=== PATIENT | female | born 1955 | race African-American/Black ===

== ENCOUNTER 2018-08-28 00:27 | Inpatient (IN) | payer MEDICARE, MEDICAID ==
[~2018-08-28] VITALS: Ht 165.1 cm; Wt 120.2 kg
[~2018-08-28 00:27] MED LIST: AMLO10TA4 PO; DIPH25CA83 PO; FURO-151 PO; GABA600T PO; HYDR-519 PO; HYDR-523 PO; OMEP20CA4 PO; insulin
[2018-08-28] MEDS ORDERED: SODIUM CHLORIDE 0.9% 1,000 ML IV ONE (00:53)
[2018-08-28 01:16] LABS: CHLORIDE 105 mEq/L (98-107)
[2018-08-28 01:23] LABS: BASOPHILS % 0.4 % (0.0-2.0); EOSINOPHILS % 0.1 % (0.0-5.0); HEMATOCRIT. 33.5 % (36.0-48.0); LYMPHOCYTES % 10.3 % (20.0-50.0); MEAN CORPUSCULAR HEMOGLOBIN 28.2 pg (28.0-32.0); MEAN PLATELET VOLUME 7.8 fl (7.4-10.4); MONOCYTES % 4.8 % (2.0-8.0); NEUTROPHILS % 84.4 % (40.0-76.0); PLATELET 325 x1000/uL (130-400); RED CELL DISTRIBUTION WIDTH 16.1 % (11.6-14.6)
[2018-08-28] MEDS ORDERED: DEXT 5%/0.45% NACL KCL 10MEQ/L 1,000 ML IV ONE (02:45)
[2018-08-28] MEDS ORDERED: DEXT 5%/0.45% NACL 1000ML 1,000 ML IV SCH (03:13)
[2018-08-28] MEDS ORDERED: CLONIDINE 0.1MG TABLET PO PRN (03:15)
[2018-08-28] MEDS ORDERED: ACETAMINOPHEN 325MG TABLET PO PRN (03:15)
[2018-08-28] MEDS ORDERED: DEXTROSE 50% WATER 50ML SYRINGE IV PRN (03:15)
[2018-08-28] MEDS ORDERED: ONDANSETRON HCL 4MG/2ML INJ IV PRN (03:15)
[2018-08-28] MEDS ORDERED: MAGNESIUM/ALUMINUM HYDROXIDE/SIMETHICONE 30ML UDC PO PRN (03:15)
[2018-08-28] MEDS ORDERED: DIPHENHYDRAMINE 50MG/ML VIAL IV PRN (03:15)
[2018-08-28 08:50] VITALS: BP 121/46
[2018-08-28 09:00] VITALS: BP 121/46
[2018-08-28] MEDS: BLOOD SUGAR DIAGNOSTIC STRIP TEST SCH ×2 (09:00→12:05)
[2018-08-28] MEDS: INSULIN LISPRO 100 UNITS/ML SUBCUT SCH ×2 (10:41→12:50)
[2018-08-28 12:00] VITALS: BP 142/51
[2018-08-28] MEDS ORDERED: CIPR-263 MT (13:57)
[2018-08-28] MEDS ORDERED: METF-816 MT (13:57)
[2018-08-28] MEDS ORDERED: LORA0.5T2 MT (13:57)
[2018-08-28] MEDS ORDERED: GLIP5TAB12 MT (13:57)
[2018-08-28] MEDS ORDERED: LOSA25TA12 MT (13:57)
[2018-08-28 15:18] VITALS: BP 121/46
== END 2018-08-28 15:36 | disposition home or self-care (01) | DRG 637 ==
LOC: ER 00:27 → 6EST 02:41 → ENRESERV 07:57
PROVIDERS: ADMIT Internal Medicine; ATTEND Internal Medicine
DX: E11.649 Type 2 diabetes mellitus with hypoglycemia without coma (principal); G93.41 Metabolic encephalopathy; Z68.41 Body mass index [BMI] 40.0-44.9, adult; L97.909 Non-pressure chronic ulcer of unspecified part of unspecified lower leg with unspecified severity; I10 Essential (primary) hypertension; E66.9 Obesity, unspecified; E11.622 Type 2 diabetes mellitus with other skin ulcer; G47.30 Sleep apnea, unspecified; J44.9 Chronic obstructive pulmonary disease, unspecified; W18.30XA Fall on same level, unspecified, initial encounter; Y93.89 Activity, other specified; Y92.098 Other place in other non-institutional residence as the place of occurrence of the external cause; Y99.8 Other external cause status; Z86.73 Personal history of transient ischemic attack (TIA), and cerebral infarction without residual deficits; Z79.899 Other long term (current) drug therapy
CPT/HCPCS: 36415; 82962; 93005; 96360; 96361; 99285; J1815; J7030

== ENCOUNTER 2019-02-25 16:51 | Inpatient (IN) | payer MEDICARE, MEDICAID ==
[~2019-02-25] VITALS: Ht 165.1 cm; Wt 102.5 kg
[~2019-02-25 16:51] MED LIST changes: +CIPR-263 MT; +GLIP5TAB12 MT; +LORA0.5T2 MT; +LOSA25TA26 MT; +METF-816 MT
[2019-02-25 19:42] LABS: CHLORIDE 105 mEq/L (98-107)
[2019-02-25 19:45] LABS: BASOPHILS % 0.4 % (0.0-2.0); EOSINOPHILS % 0.6 % (0.0-5.0); HEMATOCRIT. 31.4 % (36.0-48.0); HEMOGLOBIN. 10.2 g/dL (12.0-16.0); LYMPHOCYTES % 31.2 % (20.0-50.0); MEAN CORPUSCULAR HEMOGLOBIN 27.6 pg (28.0-32.0); MEAN PLATELET VOLUME 7.8 fl (7.4-10.4); MONOCYTES % 9.3 % (2.0-8.0); NEUTROPHILS % 58.5 % (40.0-76.0); PLATELET 356 x1000/uL (130-400); RED CELL DISTRIBUTION WIDTH 16.7 % (11.6-14.6)
[2019-02-25] MEDS ORDERED: ENOXAPARIN 80MG/0.8ML SYR SUBCUT ONE (20:00)
[2019-02-25 20:28] LABS: PROTHROMBIN TIME 10.1 sec (9.6-11.0)
[2019-02-25 21:45] VITALS: BP 142/68
[2019-02-25] MEDS ORDERED: ACETAMINOPHEN 325MG TABLET PO PRN (22:15)
[2019-02-25] MEDS ORDERED: MORPHINE SULFATE 2 MG/ML CPJ (NOT FOR IM USE) IV PRN (22:15)
[2019-02-25] MEDS ORDERED: IPRATROPIUM/ALBUTEROL 0.5-3(2.5)MG/3ML NEB HHN PRN (22:15)
[2019-02-25] MEDS ORDERED: DEXTROSE 50% WATER 50ML SYRINGE IV PRN (22:15)
[2019-02-25] MEDS ORDERED: ONDANSETRON HCL 4MG/2ML INJ IV PRN (22:15)
[2019-02-25] MEDS ORDERED: LORAZEPAM 2MG/ML CPJ IV PRN (22:15)
[2019-02-25] MEDS ORDERED: HYDROCODONE/ACETAMINOPHEN 10/325MG TABLET PO PRN (22:15)
[2019-02-25] MEDS ORDERED: CLONIDINE 0.1MG TABLET PO PRN (22:15)
[2019-02-25] MEDS ORDERED: MAGNESIUM/ALUMINUM HYDROXIDE/SIMETHICONE 30ML UDC PO PRN (22:15)
[2019-02-25] MEDS ORDERED: DOCUSATE SODIUM 100MG CAPSULE PO PRN (22:15)
[2019-02-25] MEDS ORDERED: NA PHOS,M-B/NA PHOS,DI-BA ENEMA 118ML PR PRN (22:15)
[2019-02-25] MEDS ORDERED: GUAIFENESIN 200MG/10ML SUGAR FREE UDC PO PRN (22:15)
[2019-02-25] MEDS ORDERED: HYDRALAZINE 20MG/ML VIAL IV PRN (22:15)
[2019-02-25] MEDS: DIPHENHYDRAMINE 50MG/ML VIAL IV PRN (22:31)
[2019-02-26] VITALS: BP 146/46
[2019-02-26 04:00] VITALS: BP 136/44
[2019-02-26] MEDS: SODIUM CHLORIDE 0.9% INJ 3ML FLUSH IVF SCH ×3 (05:23→20:30)
[2019-02-26] MEDS: BLOOD SUGAR DIAGNOSTIC STRIP TEST SCH ×4 (06:47→20:24)
[2019-02-26] MEDS: INSULIN LISPRO 100 UNITS/ML SUBCUT SCH ×4 (06:47→20:23)
[2019-02-26 07:03] LABS: BASOPHILS % 0.5 % (0.0-2.0); HEMATOCRIT. 29.7 % (36.0-48.0); HEMOGLOBIN. 9.8 g/dL (12.0-16.0); MEAN CORPUSCULAR VOLUME 84.9 fL (81.0-99.0); MEAN PLATELET VOLUME 7.8 fl (7.4-10.4); MONOCYTES % 9.2 % (2.0-8.0); NEUTROPHILS % 60.3 % (40.0-76.0); PLATELET 324 x1000/uL (130-400); RED CELL DISTRIBUTION WIDTH 16.8 % (11.6-14.6)
[2019-02-26 07:45] LABS: CHLORIDE 106 mEq/L (98-107)
[2019-02-26 07:53] LABS: LDL CHOLESTEROL 92 mg/dL (5-100)
[2019-02-26 07:55] LABS: CREATINE KINASE 84 IU/L (26-192); HDL CHOLESTEROL 38 mg/dL (40-59)
[2019-02-26 07:58] LABS: CREATINE KINASE MB FRACTION 1.1 ng/mL (0.5-3.6)
[2019-02-26 08:00] VITALS: BP 126/38
[2019-02-26] MEDS ORDERED: ENOXAPARIN 100MG/ML SYR SUBCUT SCH ×2 (09:00→21:00)
[2019-02-26 12:00] VITALS: BP 124/41
[2019-02-26] MEDS: AMLODIPINE 10MG TABLET PO SCH (12:50)
[2019-02-26] MEDS: LOSARTAN POTASSIUM 25 MG TABLET PO SCH (12:51)
[2019-02-26] MEDS: DIPHENHYDRAMINE 50MG/ML VIAL IV PRN ×2 (13:03→20:24)
[2019-02-26 16:00] VITALS: BP 146/50
[2019-02-26] MEDS ORDERED: APIXABAN 5 MG TABLET PO SCH (17:00)
[2019-02-26] MEDS: METFORMIN HCL 500MG TABLET PO SCH (17:48)
[2019-02-26 20:00] VITALS: BP 145/52
[2019-02-26 20:37] LABS: CREATINE KINASE 70 IU/L (26-192)
[2019-02-26 20:38] LABS: CREATINE KINASE MB FRACTION < 1.0 ng/mL (0.5-3.6)
[2019-02-27] VITALS: BP 160/57
[2019-02-27 04:00] VITALS: BP 160/60
[2019-02-27] MEDS: INSULIN LISPRO 100 UNITS/ML SUBCUT SCH (06:24)
[2019-02-27] MEDS: SODIUM CHLORIDE 0.9% INJ 3ML FLUSH IVF SCH (06:24)
[2019-02-27] MEDS: BLOOD SUGAR DIAGNOSTIC STRIP TEST SCH (06:24)
[2019-02-27] MEDS ORDERED: GLIPIZIDE 5MG TABLET PO SCH (07:10)
[2019-02-27 08:00] VITALS: BP 133/37
[2019-02-27 08:22] LABS: BASOPHILS % 0.6 % (0.0-2.0); EOSINOPHILS % 0.9 % (0.0-5.0); HEMATOCRIT. 32.4 % (36.0-48.0); HEMOGLOBIN. 10.4 g/dL (12.0-16.0); LYMPHOCYTES % 35.6 % (20.0-50.0); MEAN CORPUSCULAR HEMOGLOBIN 27.3 pg (28.0-32.0); MEAN CORPUSCULAR VOLUME 84.7 fL (81.0-99.0); MEAN PLATELET VOLUME 7.6 fl (7.4-10.4); MONOCYTES % 7.6 % (2.0-8.0); NEUTROPHILS % 55.3 % (40.0-76.0); PLATELET 346 x1000/uL (130-400); RED BLOOD CELL COUNT 3.83 mill/uL (4.2-5.4); RED CELL DISTRIBUTION WIDTH 16.7 % (11.6-14.6)
[2019-02-27 08:46] LABS: CHLORIDE 106 mEq/L (98-107)
[2019-02-27] MEDS: LOSARTAN POTASSIUM 25 MG TABLET PO SCH (08:46)
[2019-02-27] MEDS: METFORMIN HCL 500MG TABLET PO SCH (08:46)
[2019-02-27] MEDS: AMLODIPINE 10MG TABLET PO SCH (08:46)
[2019-02-27] MEDS ORDERED: APIXABAN 5 MG TABLET PO SCH (09:00)
[2019-02-27 09:03] LABS: LDL CHOLESTEROL 99 mg/dL (5-100)
[2019-02-27 09:06] LABS: HDL CHOLESTEROL 41 mg/dL (40-59)
[2019-02-27 09:45] VITALS: BP 133/37
== END 2019-02-27 12:30 | disposition home or self-care (01) | DRG 300 ==
LOC: ER 17:17 → 8WST 20:07 → ENRESERV 20:25
PROVIDERS: ADMIT Internal Medicine; ATTEND Internal Medicine
DX: I82.412 Acute embolism and thrombosis of left femoral vein (principal); L97.929 Non-pressure chronic ulcer of unspecified part of left lower leg with unspecified severity; I10 Essential (primary) hypertension; J44.9 Chronic obstructive pulmonary disease, unspecified; D64.9 Anemia, unspecified; E11.51 Type 2 diabetes mellitus with diabetic peripheral angiopathy without gangrene; E11.622 Type 2 diabetes mellitus with other skin ulcer; E66.01 Morbid (severe) obesity due to excess calories; F41.9 Anxiety disorder, unspecified; I87.8 Other specified disorders of veins; I87.2 Venous insufficiency (chronic) (peripheral); Z79.01 Long term (current) use of anticoagulants; Z79.84 Long term (current) use of oral hypoglycemic drugs; Z86.73 Personal history of transient ischemic attack (TIA), and cerebral infarction without residual deficits; Z79.899 Other long term (current) drug therapy; Z82.49 Family history of ischemic heart disease and other diseases of the circulatory system; Z86.711 Personal history of pulmonary embolism; Z86.718 Personal history of other venous thrombosis and embolism; Z98.891 History of uterine scar from previous surgery
CPT/HCPCS: 36415; 71045; 80048; 80061; 82550; 82553; 82962; 83036; 83735; 84484; 93005; 93306; 93971; 96372; 99285; J1200; J1650; J1815

== ENCOUNTER 2024-10-21 17:52 | Emergency (ER) | payer MEDICARE, MEDICAID ==
[~2024-10-21] VITALS: Ht 170.2 cm; Wt 59.0 kg
[~2024-10-21 17:52] MED LIST changes: +AMLO-905 PO; -AMLO10TA4 PO; -GLIP5TAB12 MT; +GLIP5TAB22 MT; +METF-1150 MT; -METF-816 MT
[2024-10-21 17:58] VITALS: O2SAT 100
[2024-10-21 19:24] VITALS: BP 116/37; PULSE 56; RESP 16; TEMP 36.6; O2SAT 100
== END 2024-10-21 19:21 | disposition home or self-care (01) ==
LOC: ER 17:52
DX: H35.30 Unspecified macular degeneration (principal); E11.9 Type 2 diabetes mellitus without complications; I10 Essential (primary) hypertension; J45.909 Unspecified asthma, uncomplicated; Z88.5 Allergy status to narcotic agent; Z79.899 Other long term (current) drug therapy; Z98.890 Other specified postprocedural states
CPT/HCPCS: 99281

== ENCOUNTER 2025-03-30 12:56 | Emergency (ER) | payer MEDICARE, MEDICAID ==
[~2025-03-30] VITALS: Ht 165.1 cm; Wt 80.0 kg
[2025-03-30 13:52] VITALS: O2SAT 100
[2025-03-30] MEDS: IBUPROFEN 400MG TABLET PO ONE (16:01)
[2025-03-30] MEDS ORDERED: AMOX-494 MT (16:03)
[2025-03-30] MEDS ORDERED: IBUP-2028 MT (16:03)
[2025-03-30 16:19] VITALS: BP 149/56; PULSE 85; RESP 16; TEMP 36.6; O2SAT 100
== END 2025-03-30 16:20 | disposition home or self-care (01) ==
LOC: ER 12:56
DX: H92.02 Otalgia, left ear (principal); H66.92 Otitis media, unspecified, left ear; E11.9 Type 2 diabetes mellitus without complications; I10 Essential (primary) hypertension; Z79.84 Long term (current) use of oral hypoglycemic drugs; Z79.899 Other long term (current) drug therapy; Z86.73 Personal history of transient ischemic attack (TIA), and cerebral infarction without residual deficits; Z88.5 Allergy status to narcotic agent
CPT/HCPCS: 99283